=== PATIENT | female | born 1970 | race African-American/Black ===

== ENCOUNTER 2020-03-18 17:26 | Emergency (ER) | payer OTHER, SELFPAY ==
[2020-03-18 17:53] VITALS: BP 147/86; PULSE 86; RESP 16; TEMP 35.7; O2SAT 98
--- NOTE | 2020-03-18 17:57 | ED.URI ---
HPI - URI/Sore Throat General Chief Complaint: Upper Respiratory Infection Stated Complaint: CONGESTION History of Present Illness HPI Narrative: This is a 49-year-old female comes in complaining with some nasal congestion and throat clearing. Patient states that she was positive for Covid approximately 3 weeks ago. Patient denies any fever nausea vomiting and/or diarrhea. Patient denies taking anything for her symptoms states that she drinks plenty of fluids today Related Data Home Medications Medication Instructions Recorded Confirmed fluticasone propionate [Flovent INHALATION 03/18/20 HFA] Allergies Allergy/AdvReac Type Severity Reaction Status Date / Time No Known Allergies Allergy Mild Unverified 05/27/08 12:19 Review of Systems Review of Systems: Narrative: CONSTITUTIONAL: Denies fever, chills, or sweats. EYES: Denies visual changes, redness, or discharge. ENT: Denies rhinorrhea, congestion, sore throat, or otalgia. Clearing throat CARDIOVASCULAR:Denies chest pain, palpitations, or edema. RESPIRATORY: Denies cough or dyspnea. GASTROINTESTINAL: Denies abdominal pain, nausea, vomiting, or diarrhea. GENITOURINARY: Denies dysuria or hematuria. SKIN:[Denies rash or itching. MUSCULOSKELETAL:Denies back pain, joint pain, or myalgia. NEUROLOGIC: Denies headache, numbness, or weakness. PSYCHIATRIC:Denies anxiety or depression PMFSH Comments At time as signature, I have reviewed and agree with nursing past medical, social, surgical and family history. Please see nursing chart for further information. There is no relevant family history pertinent to the presenting complaint. Exam Narrative: Exam Narrative: GENERAL:Well-appearing, well-nourished, and in no acute distress. HEAD:Normocephalic, atraumatic. EYES: PERRLA and EOMI. ENT: Nares clear, no rhinorrhea or epistaxis. Mucous membranes moist. Slight pharyngeal erythema clear drainage NECK: Supple. CHEST: Clear to auscultation. No respiratory distress. HEART: Regular rate and rhythm. No murmur heard. Normal peripheral pulses. ABDOMEN: Soft, nontender, nondistended, normal active bowel sounds. EXTREMITIES: Normal range of motion. No edema. SKIN: Warm, dry, no rash. NEURO: No focal deficits. Alert and oriented x3. Course Vital Signs Vital signs: Vital Signs Temperature 96.2 F L 03/18/20 17:53 Pulse Rate 86 03/18/20 17:53 Respiratory Rate 16 03/18/20 17:53 Blood Pressure 147/86 H 03/18/20 17:53 Pulse Oximetry 98 03/18/20 17:53 Temperature 96.2 F L 03/18/20 17:53 Pulse Rate 86 03/18/20 17:53 Respiratory Rate 16 03/18/20 17:53 Blood Pressure 147/86 H 03/18/20 17:53 Pulse Oximetry 98 03/18/20 17:53 Discharge Plan Discharge Clinical Impression: Upper respiratory infection, Allergic rhinitis Patient Disposition: Home, Self-Care Condition: Stable Instructions: Antibiotic Form, Allergic Rhinitis (ED) Additional Instructions: Viral illness may last between 7-12days; antibiotic is NOT recommended at this time. Recommend antihistamine such as Benadryl at night time and Claritin/Zyrtec/Martina during the day Also, recommend symptomatic treatment includes: rest, fluids, and increase humidity of the air at home. Recommend Acetaminophen or nonsteroidal anti-inflammatory agents (NSAIDs) as directed in the bottle to reduce fever and/pain/headache. Avoid smoking/second-hand smoke. Limit visits to areas with large crowds. Please schedule a follow-up visit with your personal physician for further evaluation and treatment within 3-5days. Including recheck and discussion of your blood pressure. If your symptoms persist, change or worsen significantly before you can contact your personal physician then please, without delay, go to the emergency department for further evaluation Prescriptions: New loratadine [Allergy Relief (loratadine)] 10 mg tablet 10 mg PO DAILY Qty: 30 RF: 0 fluticasone propionate [Flonase Al
== END 2020-03-18 18:24 | disposition home or self-care (01) ==
PROVIDERS: Emergency Provider Nurse Practitioner Family
DX: J06.9 Acute upper respiratory infection, unspecified (principal); J30.9 Allergic rhinitis, unspecified; Z86.16 Personal history of COVID-19
CPT/HCPCS: 99213; G0463